=== PATIENT | female | born 1970 | race Two or more races ===

== ENCOUNTER 2017-06-30 07:50 | Day surgery (SDC) | payer OTHER | END 2017-06-30 15:00 | disposition home or self-care (01) | LOC: AMB-ENDOS 07:50 | DX: K64.0 First degree hemorrhoids (principal) ==

== ENCOUNTER 2017-07-03 09:16 | Outpatient (CLI) | payer OTHER | END 2017-07-03 09:35 | disposition home or self-care (01) | LOC: RAD 501 09:16 | DX: M53.1 Cervicobrachial syndrome (principal); M54.5 Low back pain ==

== ENCOUNTER 2020-04-15 14:43 | Outpatient (CLI) | payer OTHER | END 2020-04-15 15:00 | disposition home or self-care (01) | LOC: RAD 14:43 | PROVIDERS: ATTEND Physical Medicine & Rehabilitation Pain Medicine | DX: M26.601 Right temporomandibular joint disorder, unspecified (principal); M26.602 Left temporomandibular joint disorder, unspecified; M25.561 Pain in right knee ==